=== PATIENT | female | born 1945 | race Caucasian/White ===

== ENCOUNTER → 2018-03-14 | Outpatient (CLI) | payer OTHER ==
[~2018-03-14] MED LIST: ACETAMINOPHEN; ALPR.25 PO; ALPR.5 PO; ASPI81CH PO; ASPI81EC PO; BACL10 PO; BUTALBITAL; Butalbital-Asa1 EAC1 PO; CAFFEINE; CALCA500CH PO; CALCIT950 PO; CHOL10002 PO; CIPR500 PO; CIPRO500 MG PO; CYAN500 PO; CYCL10 PO; Calcium Citrat250 MG PO; D3-20002000 UNIT PO; Dyazide 37.5-21 EACH PO; ENAL20 PO; FAMO20 PO; FISH OIL EC 1,1 EAC2 PO; FISH1000 PO; FLAX PO; FLUT110OIA INH; FOLI400 PO; HCTZ; HYDACE5 PO; HYDHOMSY; HYDR1TAB94 PO; HYDRA25 PO; HYDROCODONE-HOMA5 ML PO; IBUP800 PO; LORA.5 PO; LOSA25 PO; LOSA50 PO; MELO7.5 PO; METO100ER PO; METO50ER PO; METOPROLOL; MULVITB; Metoprolol Tar100 MG PO; NAPR500 PO; NYST100P TOP; OMEP20ER PO; Omeprazole20 M1; Omeprazole20 M1 PO; Phentermine HCl30 MG; TOCO400 PO; TRIHYD253B PO; VITAMIN B122500 MC1 PO; Vitamin E100 UNIT PO; ZOLP5 PO; [UNRECOGNIZED DRUG - OTHER]
[2018-03-14 16:50] LABS: BASOPHILS ABSOLUTE AUTO 0.05 K/mm3 (0.00-0.23); BASOPHILS PERCENT AUTO 1 % (0-2); EOSINOPHILS ABSOLUTE AUTO 0.18 K/mm3 (0.00-0.68); EOSINOPHILS PERCENT AUTO 3 % (0-6); Hematocrit 40.1 % (33.0-51.0); Hemoglobin 13.5 g/dL (11.5-16.0); IMMATURE GRAN ABSOLUTE AUTO 0.02 K/mm3 (0.00-0.10); IMMATURE GRAN PERCENT AUTO 0 % (0-1); LYMPHOCYTES ABSOLUTE AUTO 2.39 K/mm3 (0.84-5.20); LYMPHOCYTES PERCENT AUTO 39 % (21-46); MONOCYTES ABSOLUTE AUTO 0.62 K/mm3 (0.16-1.47); MONOCYTES PERCENT AUTO 10 % (4-13); Mean Corpuscular HGB 30.1 pg (26.0-34.0); Mean Corpuscular HGB Conc 33.7 g/dL (31.5-36.5); Mean Corpuscular Volume 89 fL (80-100); Mean Platelet Volume 10.1 fL (9.1-12.4); NEUTROPHILS ABSOLUTE AUTO 2.89 K/mm3 (1.96-9.15); NEUTROPHILS PERCENT AUTO 47 % (41-73); Platelet Count 306 K/mm3 (150-400); RDW Coefficient Variation 13.2 % (11.7-14.2); RDW Standard Deviation 43.1 fL (35.1-46.3); Red Blood Cell Count 4.49 M/mm3 (3.80-5.20); White Blood Cell Count 6.15 K/mm3 (4.00-11.30)
[2018-03-14 17:04] LABS: Alanine Aminotransfer (ALT/SGP 33 U/L (12-78); Albumin, Blood 3.5 g/dL (3.4-5.0); Albumin/Globulin Ratio 0.9 (0.8-1.8); Alk Phos 86 U/L (40-126); Anion Gap 11 mmol/L (6-16); Aspartate Aminotrans (AST/SGOT 19 U/L (12-37); Bilirubin, Total 0.3 mg/dL (0.1-1.0); Blood Urea Nitrogen 23 mg/dL (8-24); Bun/Creatinine Ratio 21.5 (12.0-20.0); CO2, Blood 27 mmol/L (21-32); Calcium, Blood 8.8 mg/dL (8.5-10.1); Chloride, Blood 101 mmol/L (98-108); Creatinine, Blood 1.07 mg/dL (0.40-1.00); Globulin, Blood 4.1 g/dL (2.2-4.0); Glomerular Filtration Rate 50 (60-); Glucose, Blood 111 mg/dL (70-99); Potassium, Blood 3.1 mmol/L (3.5-5.5); Sodium, Blood 139 mmol/L (136-145); Total Protein, Blood 7.6 g/dL (6.4-8.2)
[2018-03-14 17:05] LABS: Troponin I <0.017 ng/mL (0.000-0.040)
== END | disposition home or self-care (01) ==
LOC: LAB EV 16:46 → LAB SHORT 16:46
PROVIDERS: Physician Assistant
DX: R07.9 Chest pain, unspecified (principal)
CPT/HCPCS: 80053; 84484; 85025; 85379

== ENCOUNTER 2018-09-15 10:56 | Day surgery (SDC) | payer OTHER ==
[~2018-09-15] VITALS: Ht 154.9 cm; Wt 97.8 kg
[~2018-09-15 10:56] MED LIST changes: +Alph-E-Mixed400 UNIT; -CYAN500 PO; +Furosemide20 MG PO; +LO-DOSE ASPIRIN81 MG PO; -MULVITB; +NIFE30ER PO; +POTCHL20ER PO; +Vitamin B-121000 MCG; -[UNRECOGNIZED DRUG - OTHER]
--- NOTE | 2018-09-15 11:43 | NUR ---
09/15/18 1143 Malena Edouard WHEN PLACING EKG PADS ON PT., OBSERVED UNDER BILAT BREASTS PINK SKIN RASH.
== END 2018-09-15 12:25 | disposition home or self-care (01) ==
LOC: ORSCSDS 10:56
PROVIDERS: Surgery
PROC: 0DBK8ZX Excision of Ascending Colon, Via Natural or Artificial Opening Endoscopic, Diagnostic (ICD-10-PCS; principal; 2018-09-15 11:00)
DX: Z12.11 Encounter for screening for malignant neoplasm of colon (principal); Z86.010 Personal history of colon polyps; D12.2 Benign neoplasm of ascending colon; I10 Essential (primary) hypertension; G47.33 Obstructive sleep apnea (adult) (pediatric); K21.9 Gastro-esophageal reflux disease without esophagitis; E88.81 Metabolic syndrome and other insulin resistance; E66.01 Morbid (severe) obesity due to excess calories; Z68.41 Body mass index [BMI] 40.0-44.9, adult; Z79.899 Other long term (current) drug therapy
CPT/HCPCS: 88305; J2704; J7120

== ENCOUNTER → 2019-02-09 | Outpatient (CLI) | payer OTHER | END | disposition home or self-care (01) | LOC: LAB SHORT 17:59 → LAB EV 17:59 | DX: R30.0 Dysuria (principal); R30.9 Painful micturition, unspecified | CPT/HCPCS: 87086 ==

== ENCOUNTER → 2019-08-23 | Outpatient (CLI) | payer OTHER ==
[~2019-08-23] MED LIST changes: -Alph-E-Mixed400 UNIT; +Alph-E-Mixed400 UNIT PO; -Omeprazole20 M1
== END | disposition home or self-care (01) ==
LOC: LAB EV 14:50 → LAB SHORT 14:50
DX: L02.91 Cutaneous abscess, unspecified (principal)
CPT/HCPCS: 87070; 87075; 87205

== ENCOUNTER → 2019-12-28 | Outpatient (CLI) | payer OTHER ==
[~2019-12-28] MED LIST changes: +ACET500 PO; +ASPIR 8181 M1 PO; -LO-DOSE ASPIRIN81 MG PO; +ROXICODONE5 MG PO
== END ==
LOC: LAB SHORT 17:40 → LAB 17:40
DX: Z48.817 Encounter for surgical aftercare following surgery on the skin and subcutaneous tissue (principal); L08.9 Local infection of the skin and subcutaneous tissue, unspecified
CPT/HCPCS: 87070; 87077; 87186; 87205

== ENCOUNTER → 2020-03-19 | Outpatient (CLI) | payer OTHER ==
[~2020-03-19] MED LIST changes: +BUTALBITAL-ASA1 EACH PO; +FISH OIL 1,2001 EAC1 PO; +HYDCHL12.5 PO; +METF500C PO; +TRAM50 PO
[2020-03-21 14:32] LABS: CORONAVIRUS (COVID19) CSH-NRL Negative (Negative)
== END | disposition home or self-care (01) ==
LOC: LAB SHORT 13:24 → LAB 13:24
PROVIDERS: Internal Medicine
DX: Z20.822 Contact with and (suspected) exposure to COVID-19 (principal)
CPT/HCPCS: U0003

== ENCOUNTER → 2020-05-14 | Outpatient (CLI) | payer OTHER, SELFPAY | LOC: LAB SHORT 18:30 → LAB 18:30 | DX: L08.9 Local infection of the skin and subcutaneous tissue, unspecified (principal); L81.4 Other melanin hyperpigmentation; L82.1 Other seborrheic keratosis; D22.5 Melanocytic nevi of trunk; D22.71 Melanocytic nevi of right lower limb, including hip; D22.72 Melanocytic nevi of left lower limb, including hip; Z71.89 Other specified counseling | CPT/HCPCS: 87070; 87147; 87184; 87205 ==

== ENCOUNTER 2020-08-21 08:38 | Day surgery (SDC) | payer OTHER, SELFPAY ==
[~2020-08-21 08:38] MED LIST changes: -BUTALBITAL-ASA1 EACH PO; -FISH OIL 1,2001 EAC1 PO; -HYDCHL12.5 PO; -METF500C PO; -TRAM50 PO
[2020-09-16] MEDS ORDERED: BUTALBITAL-ASA1 EACH PO (12:52)
[2020-09-16] MEDS ORDERED: FISH OIL 1,2001 EAC1 PO (12:52)
[2020-09-16] MEDS ORDERED: HYDCHL12.5 PO (12:52)
[2020-09-16] MEDS ORDERED: TRAM50 PO (12:53)
[2020-09-16] MEDS ORDERED: METF500C PO (12:53)
== END 2020-08-21 22:52 | disposition home or self-care (01) ==
LOC: MOI MAM 08:38
DX: D05.11 Intraductal carcinoma in situ of right breast (principal)
CPT/HCPCS: 19081; 88305; 88341; 88342; 88360; A4648

== ENCOUNTER 2020-09-25 12:21 | Day surgery (SDC) | payer OTHER ==
[~2020-09-25] VITALS: Ht 157.5 cm; Wt 102.9 kg
[~2020-09-25 12:21] MED LIST changes: +BUTALBITAL-ASA1 EACH PO; +FISH OIL 1,2001 EAC1 PO; +HYDCHL12.5 PO; +METF500C PO; +TRAM50 PO
[2020-09-25] MEDS ORDERED: Phentermine HCl30 MG (13:07)
--- NOTE | 2020-09-25 17:23 | NUR ---
09/25/20 1723 Marita Levy PT IS IN THE RECLINER AT THIS TIME. VSS. PT IS TOLERATED PO FLUIDS WELL AND CONTINUES TO DENY NAUSEA. PT COMPLAINED OF PAIN 7/10 IN THE RIGHT BREAST. RN TREATED WITH IV AND ORAL PAIN MEDICATION PER DR'S ORDERS. PT'S FAMILY NOTIFIED OF PROGRESS. WARM BLANKETS PROVIDED AND CALL LIGHT IN REACH.
== END 2020-09-25 17:39 | disposition home or self-care (01) ==
LOC: ORSCSDS 12:21
PROVIDERS: Surgery
PROC: 0HBT0ZZ Excision of Right Breast, Open Approach (ICD-10-PCS; principal; 2020-09-25 13:00)
DX: C50.311 Malignant neoplasm of lower-inner quadrant of right female breast (principal); I10 Essential (primary) hypertension; E78.5 Hyperlipidemia, unspecified; E11.9 Type 2 diabetes mellitus without complications
CPT/HCPCS: 19281; 38792; 82947; 88307; 88342; A4648; A9270; A9520; J0690; J2405; J2765; J3010; J7120; Q9968

== ENCOUNTER → 2022-03-26 | Outpatient (CLI) | payer OTHER | END | disposition home or self-care (01) | LOC: LAB SHORT 16:38 | DX: N39.0 Urinary tract infection, site not specified (principal) | CPT/HCPCS: 87086 ==

== ENCOUNTER → 2023-01-13 | Outpatient (CLI) | payer OTHER ==
[2023-01-13 13:26] LABS: Anion Gap 9 mmol/L (6-16); Blood Urea Nitrogen 33 mg/dL (8-24); Bun/Creatinine Ratio 32.4 (12.0-20.0); CO2, Blood 23 mmol/L (21-32); Chloride, Blood 106 mmol/L (98-108); Creatinine, Blood 1.02 mg/dL (0.40-1.00); Glomerular Filtration Rate 57 (60-); Glucose, Blood 134 mg/dL (70-99); Phosphorus, Blood 4.6 mg/dL (2.5-4.9); Potassium, Blood 3.9 mmol/L (3.5-5.5); Sodium, Blood 138 mmol/L (136-145)
[2023-01-13 13:27] LABS: BASOPHILS ABSOLUTE AUTO 0.06 K/mm3 (0.00-0.23); BASOPHILS PERCENT AUTO 1 % (0-2); EOSINOPHILS ABSOLUTE AUTO 0.35 K/mm3 (0.00-0.68); EOSINOPHILS PERCENT AUTO 5 % (0-6); Hematocrit 40.7 % (33.0-51.0); Hemoglobin 13.5 g/dL (11.5-16.0); IMMATURE GRAN ABSOLUTE AUTO 0.02 K/mm3 (0.00-0.10); IMMATURE GRAN PERCENT AUTO 0 % (0-1); LYMPHOCYTES ABSOLUTE AUTO 2.77 K/mm3 (0.84-5.20); LYMPHOCYTES PERCENT AUTO 35 % (21-46); MONOCYTES ABSOLUTE AUTO 0.74 K/mm3 (0.16-1.47); MONOCYTES PERCENT AUTO 10 % (4-13); Mean Corpuscular HGB 29.5 pg (26.0-34.0); Mean Corpuscular HGB Conc 33.2 g/dL (31.5-36.5); Mean Corpuscular Volume 89 fL (80-100); Mean Platelet Volume 10.2 fL (9.1-12.4); NEUTROPHILS ABSOLUTE AUTO 3.88 K/mm3 (1.96-9.15); NEUTROPHILS PERCENT AUTO 50 % (41-73); Platelet Count 311 K/mm3 (150-400); RDW Coefficient Variation 13.6 % (11.7-14.2); Red Blood Cell Count 4.57 M/mm3 (3.80-5.20); White Blood Cell Count 7.82 K/mm3 (4.00-11.30)
== END | disposition home or self-care (01) ==
LOC: LAB SHORT 13:03 → LAB 13:03
PROVIDERS: Family Medicine
DX: K92.1 Melena (principal)
CPT/HCPCS: 80069; 85025

== ENCOUNTER 2023-03-20 19:23 | Emergency (ER) | payer OTHER ==
[~2023-03-20] VITALS: Ht 154.9 cm; Wt 98.4 kg
[2023-03-20 19:42] LABS: BASOPHILS ABSOLUTE AUTO 0.08 K/mm3 (0.00-0.23); BASOPHILS PERCENT AUTO 1 % (0-2); EOSINOPHILS ABSOLUTE AUTO 0.43 K/mm3 (0.00-0.68); EOSINOPHILS PERCENT AUTO 5 % (0-6); Hematocrit 38.5 % (33.0-51.0); Hemoglobin 12.4 g/dL (11.5-16.0); IMMATURE GRAN ABSOLUTE AUTO 0.03 K/mm3 (0.00-0.10); IMMATURE GRAN PERCENT AUTO 0 % (0-1); LYMPHOCYTES ABSOLUTE AUTO 3.51 K/mm3 (0.84-5.20); LYMPHOCYTES PERCENT AUTO 40 % (21-46); MONOCYTES ABSOLUTE AUTO 0.91 K/mm3 (0.16-1.47); MONOCYTES PERCENT AUTO 10 % (4-13); Mean Corpuscular HGB 29.2 pg (26.0-34.0); Mean Corpuscular HGB Conc 32.2 g/dL (31.5-36.5); Mean Corpuscular Volume 91 fL (80-100); Mean Platelet Volume 9.7 fL (9.1-12.4); NEUTROPHILS ABSOLUTE AUTO 3.83 K/mm3 (1.96-9.15); NEUTROPHILS PERCENT AUTO 44 % (41-73); Platelet Count 295 K/mm3 (150-400); RDW Coefficient Variation 12.9 % (11.7-14.2); RDW Standard Deviation 42.4 fL (35.1-46.3); Red Blood Cell Count 4.25 M/mm3 (3.80-5.20); White Blood Cell Count 8.79 K/mm3 (4.00-11.30)
[2023-03-20 20:05] LABS: Albumin, Blood 3.7 g/dL (3.4-5.0); Albumin/Globulin Ratio 1.1 (0.8-1.8); Bilirubin, Total 0.2 mg/dL (0.1-1.0); Bun/Creatinine Ratio 32.4 (12.0-20.0); Calcium, Blood 9.2 mg/dL (8.5-10.1); Creatinine, Blood 0.68 mg/dL (0.40-1.00); Globulin, Blood 3.5 g/dL (2.2-4.0); Potassium, Blood 4.3 mmol/L (3.5-5.5); Total Protein, Blood 7.2 g/dL (6.4-8.2)
[2023-03-20 22:23] LABS: Source, Urine Clean Catch
[2023-03-20 22:27] LABS: Bilirubin, Urine Neg (Neg); Blood, Urine Neg (Neg); Glucose Qualitative, Urine Neg (Neg); Ketones, Urine Neg (Neg); Leukocyte Esterase, Urine 3+ (Neg); Nitrite, Urine Neg (Neg); Protein, Urine Neg (Neg); Urobilinogen, Urine NORM (Normal)
[2023-03-20 23:13] LABS: Appearance, Urine Clear (Clear); Color, Urine Yellow (P-Yellow)
[2023-03-20 23:14] LABS: Bacteria Rare /hpf; Red Blood Cells, Urine Not Seen /hpf (0-2); Squamous Epithelial Cells Not Seen /hpf (Few)
[2023-03-20 23:32] VITALS: BP 141/63
== END 2023-03-20 23:32 | disposition home or self-care (01) ==
LOC: ER 19:23
PROVIDERS: Emergency Medicine
DX: R07.89 Other chest pain (principal); Z88.8 Allergy status to other drugs, medicaments and biological substances; Z79.82 Long term (current) use of aspirin; I10 Essential (primary) hypertension; Z79.899 Other long term (current) drug therapy
CPT/HCPCS: 71045; 80053; 81001; 84484; 85025; 87086; 93005; 93010; 99285-25; A9270

== ENCOUNTER 2024-06-23 06:10 | Day surgery (SDC) | payer OTHER ==
[2024-06-23] VITALS (15 sets, daily range): BP systolic 115–164; BP diastolic 63–77
[2024-06-23] MEDS ORDERED: Benzocaine Oral Spray 0.5ML UD ONE (06:49)
[2024-06-23] MEDS ORDERED: Lactated Ringer's 1,000 ML IV ONE (06:55)
--- NOTE | 2024-06-23 07:30 | NUR ---
ASSUMED CARE FROM ANESTHESIA. PT AWAKE AND VERBALIZING WELL.
--- NOTE | 2024-06-23 07:59 | NUR ---
PT VERBALIZED UNDERSTADING OF WRITTEN AND VERBAL D/C INST. PT AMB IN RM /S DIFFICULTY. PT WILL BE TAKEN OUT OF THE [facility] VIA W/C. IV REMOVED.
[2024-06-23] MEDS ORDERED: Lidocaine HCl 2% 20 MG/ML 5ML SYR IV ONE (12:31)
[2024-06-23] MEDS ORDERED: Propofol 10mg/ml 20 ml Vial (Procedural) IV ONE (12:31)
== END 2024-06-23 23:00 | disposition home or self-care (01) ==
LOC: MHTC 06:10
DX: I34.0 Nonrheumatic mitral (valve) insufficiency (principal); R06.09 Other forms of dyspnea; I10 Essential (primary) hypertension; E78.5 Hyperlipidemia, unspecified; E11.9 Type 2 diabetes mellitus without complications; E66.9 Obesity, unspecified; K21.9 Gastro-esophageal reflux disease without esophagitis
CPT/HCPCS: 93312; 93325; A9270; J2003; J2704; J7120

== ENCOUNTER 2024-07-04 08:48 | Day surgery (SDC) | payer OTHER ==
[~2024-07-04] VITALS: Ht 154.9 cm; Wt 98.0 kg
[~2024-07-04 08:48] MED LIST changes: -D3-20002000 UNIT PO; +SERTRALINE HCL50 MG PO; +TRAZ50 PO; +VITAMIN D310 MC5 PO
[2024-07-04] MEDS ORDERED: ALPR.25 PO (09:16)
[2024-07-04] MEDS ORDERED: ANASTROZOLE1 M7 PO (09:18)
[2024-07-04] MEDS ORDERED: GABA100 PO (09:18)
[2024-07-04 09:19] VITALS: BP 163/87
[2024-07-04] MEDS ORDERED: Atarax10 MG PO (09:19)
[2024-07-04] MEDS ORDERED: LOSA50 PO (09:19)
[2024-07-04] MEDS ORDERED: NITR.4SL SL (09:20)
[2024-07-04] MEDS ORDERED: PRAV20 PO (09:21)
[2024-07-04] MEDS ORDERED: NS 0 ML IV ONE ×2 (10:22→10:23)
[2024-07-04] MEDS ORDERED: Verapamil HCL 2.5 MG/ML 2ML Injection ONE (10:22)
[2024-07-04] MEDS ORDERED: Heparin Sodium 1000 Units/ML 10ML MDV ONE (10:22)
[2024-07-04] MEDS ORDERED: Nitroglycerin 2 MG/20 ML BTL ONE (10:23)
--- NOTE | 2024-07-04 11:43 | NUR ---
PT RESCHEDULED FOR TOMORROW. 20 IV DISCONTINUED FROM LEFT AC WITH INTACT CANNULA. PT ESCORTED OUT VIA WHEELCHAIR ESCORT.
[2024-07-05] MEDS ORDERED: FentaNYL Citrate 50 MCG/ML 2 ML Injection ONE (13:31)
[2024-07-05] MEDS ORDERED: Midazolam HCl 1MG / ML 2ML Vial ONE (13:31)
== END 2024-07-04 23:00 | disposition home or self-care (01) ==
LOC: MHTC 08:48
DX: I34.0 Nonrheumatic mitral (valve) insufficiency (principal); Z53.29 Procedure and treatment not carried out because of patient's decision for other reasons
CPT/HCPCS: J1644; J2250; J3010; J7030; J7050

== ENCOUNTER 2024-07-05 13:15 | Day surgery (SDC) | payer OTHER ==
[2024-07-05] VITALS (9 sets, daily range): BP systolic 119–167; BP diastolic 76–147
[~2024-07-05] VITALS: Ht 154.9 cm; Wt 98.0 kg
[~2024-07-05 13:15] MED LIST changes: +ANASTROZOLE1 M7 PO; +Atarax10 MG PO; +GABA100 PO; +NITR.4SL SL; +PRAV20 PO
[2024-07-05] MEDS ORDERED: Aspirin 81 MG Chew ONE (13:47)
[2024-07-05] MEDS ORDERED: Midazolam HCl 1MG / ML 2ML Vial ONE (14:45)
[2024-07-05] MEDS ORDERED: FentaNYL Citrate 50 MCG/ML 2 ML Injection ONE (14:45)
[2024-07-05] MEDS ORDERED: NS 250 ML IV ONE (14:48)
[2024-07-05] MEDS ORDERED: Heparin Sodium 1000 Units/ML 10ML MDV ONE (14:48)
[2024-07-05] MEDS ORDERED: NS 1,000 ML IV ONE (14:48)
[2024-07-05] MEDS ORDERED: Verapamil HCL 2.5 MG/ML 2ML Injection ONE (14:48)
[2024-07-05] MEDS ORDERED: Nitroglycerin 2 MG/20 ML BTL ONE (14:49)
--- NOTE | 2024-07-05 15:24 | NUR ---
pt to recovery from lab. radial site soft and non-tender per pt. no bleeing/hematoma noted. pt given food per request.
--- NOTE | 2024-07-05 15:59 | NUR ---
radial site soft and non-tender per pt. no bleeding noted.
--- NOTE | 2024-07-05 16:12 | NUR ---
radial site soft and non-tender per pt. no bleeding/hematoma noted. 2cc removed from tr band.
--- NOTE | 2024-07-05 16:33 | NUR ---
tr band fully deflated. no bleeding/hematoma noted. radial site soft and non-tender per pt.
--- NOTE | 2024-07-05 17:23 | NUR ---
pt given dc instructions and verbalized understadning. iv out. pt changed. radial site soft and non-tender per pt. no bleeding/hematoma noted. cloth dot, arm board, sling applied. pt taken to [facility] via [facility]. daughter to take pt home.
== END 2024-07-05 23:00 | disposition home or self-care (01) ==
LOC: MHTC 13:15
DX: I34.0 Nonrheumatic mitral (valve) insufficiency (principal); I25.118 Atherosclerotic heart disease of native coronary artery with other forms of angina pectoris; E66.01 Morbid (severe) obesity due to excess calories; E11.9 Type 2 diabetes mellitus without complications; I10 Essential (primary) hypertension; E78.5 Hyperlipidemia, unspecified; M81.0 Age-related osteoporosis without current pathological fracture; I11.0 Hypertensive heart disease with heart failure; I50.30 Unspecified diastolic (congestive) heart failure; Z88.8 Allergy status to other drugs, medicaments and biological substances; Z79.82 Long term (current) use of aspirin; Z79.899 Other long term (current) drug therapy; Z79.84 Long term (current) use of oral hypoglycemic drugs
CPT/HCPCS: 76937; 93458; 99152; A9270; C1769; C1887; C1894; J1644; J2250; J3010; J7030; J7050; Q9967

== ENCOUNTER 2024-10-23 12:36 | Observation (INO) | payer OTHER ==
[~2024-10-23] VITALS: Ht 154.9 cm; Wt 97.5 kg
[2024-10-23] MEDS ORDERED: ISOSORBIDE MONO30 MG PO (13:35)
[2024-10-23 13:47] LABS: BASOPHILS ABSOLUTE AUTO 0.06 K/mm3 (0.00-0.23); BASOPHILS PERCENT AUTO 1 % (0-2); EOSINOPHILS ABSOLUTE AUTO 0.25 K/mm3 (0.00-0.68); EOSINOPHILS PERCENT AUTO 3 % (0-6); Hematocrit 39.3 % (33.0-51.0); Hemoglobin 12.9 g/dL (11.5-16.0); IMMATURE GRAN ABSOLUTE AUTO 0.03 K/mm3 (0.00-0.10); IMMATURE GRAN PERCENT AUTO 0 % (0-1); LYMPHOCYTES ABSOLUTE AUTO 1.73 K/mm3 (0.84-5.20); LYMPHOCYTES PERCENT AUTO 22 % (21-46); MONOCYTES ABSOLUTE AUTO 0.54 K/mm3 (0.16-1.47); MONOCYTES PERCENT AUTO 7 % (4-13); Mean Corpuscular HGB Conc 32.8 g/dL (31.5-36.5); Mean Corpuscular Volume 88 fL (80-100); NEUTROPHILS ABSOLUTE AUTO 5.15 K/mm3 (1.96-9.15); NEUTROPHILS PERCENT AUTO 66 % (41-73); NRBC ABSOLUTE 0.00 K/mm3 (0.00-0.02); NRBC Auto 0.0 /100 WBC (0.0-0.2); Platelet Count 286 K/mm3 (150-400); RDW Coefficient Variation 13.2 % (11.7-14.2); RDW Standard Deviation 42.9 fL (35.1-46.3)
[2024-10-23 14:07] LABS: Alanine Aminotransfer (ALT/SGP 27.0 U/L (12-78); Albumin, Blood 3.7 g/dL (3.4-5.0); Albumin/Globulin Ratio 1.0 (0.8-1.8); Anion Gap 8.0 mmol/L (3-11); Aspartate Aminotrans (AST/SGOT 22.0 U/L (12-37); Bilirubin, Total 0.6 mg/dL (0.1-1.0); Blood Urea Nitrogen 12.0 mg/dL (8-24); CO2, Blood 27.0 mmol/L (21-32); Calcium, Blood 9.4 mg/dL (8.5-10.1); Chloride, Blood 106.0 mmol/L (98-108); Creatinine, Blood 0.58 mg/dL (0.40-1.00); Globulin, Blood 3.8 g/dL (2.2-4.0); Glucose, Blood 118.0 mg/dL (70-99); Potassium, Blood 3.7 mmol/L (3.5-5.5); Sodium, Blood 137.0 mmol/L (136-145); Total Protein, Blood 7.5 g/dL (6.4-8.2)
[2024-10-23 16:24] LABS: Influenza A, PCR NEGATIVE (NEGATIVE); Influenza B, PCR NEGATIVE (NEGATIVE); Resp Syncytial Virus, PCR NEGATIVE (NEGATIVE); SARS-Cov-2 (COVID-19) PCR, MMC NEGATIVE (NEGATIVE)
[2024-10-23] MEDS ORDERED: Ondansetron HCl 2 MG / ML 2ML Vial IV PRN (17:50)
[2024-10-23] MEDS ORDERED: Insulin Human Lispro 100 Units/ML 3ML Syringe SC SCH (21:00)
[2024-10-23 22:04] VITALS: BP 161/77
[2024-10-24] VITALS (7 sets, daily range): BP systolic 136–164; BP diastolic 67–88
[2024-10-24 05:07] LABS: Magnesium, Blood 1.4 mg/dL (1.6-2.4)
[2024-10-24 05:08] LABS: Anion Gap 9.0 mmol/L (3-11); Blood Urea Nitrogen 14.0 mg/dL (8-24); CO2, Blood 30.0 mmol/L (21-32); Calcium, Blood 8.7 mg/dL (8.5-10.1); Chloride, Blood 101.0 mmol/L (98-108); Creatinine, Blood 0.83 mg/dL (0.40-1.00); Glucose, Blood 94.0 mg/dL (70-99); Potassium, Blood 3.6 mmol/L (3.5-5.5); Sodium, Blood 136.0 mmol/L (136-145)
--- NOTE | 2024-10-24 07:25 | NUR ---
SHIFT SUMMARY; PATIENT SLEPT IN LONG INTERVALS, HAD 1 MORE LIQUID BM. UP TO BSC BREATHING ALITTLE EASIER BY MORNING.
[2024-10-24] MEDS ORDERED: Enoxaparin 40 MG/0.4 ML SYR SC SCH (09:00)
--- NOTE | 2024-10-24 16:48 | NUR ---
SHIFT SUMMARY PT AOX4, INDEPENDENT IN THE ROOM. GOOD URINE OUTPUT THIS SHIFT. NO ACUTE COMPLAINTS. CALLS AND MAKES HER NEEDS KNOWN. FAMILY AT THE BS TODAY. REPOSITIONS SELF IN BED. NO EVENTS PER TELE. CALL LIGHT WITHIN REACH, BED LOCKED AND IN THE LOWEST POSITION. WILL REPORT TO ONCOMING NURSE.
[2024-10-25 03:12] VITALS: BP 129/59
--- NOTE | 2024-10-25 03:14 | NUR ---
TELE REPORTS 13 BEAT RUN OF [place], PT ASLEEP, AWOKE AND DENIES ANY CHEST DISCOMFORT. VS WNL.
--- NOTE | 2024-10-25 04:35 | NUR ---
PT A&O X4, VS WNL, TELE NSR IN 70'S, CBG 171 AT HS. PT INDEPENDENT WITH MOBILITY. USES CALL SYSTEM APPROPRIATELY. REMAINS ON DIURETIC'S. WILL D/C HOME WHEN STABLE.
[2024-10-25 05:25] LABS: Albumin, Blood 3.7 g/dL (3.4-5.0); Anion Gap 10 mmol/L (3-11); Blood Urea Nitrogen 18 mg/dL (8-24); CO2, Blood 30 mmol/L (21-32); Calcium, Blood 8.5 mg/dL (8.5-10.1); Chloride, Blood 99 mmol/L (98-108); Creatinine, Blood 0.84 mg/dL (0.40-1.00); Glucose, Blood 103 mg/dL (70-99); Phosphorus, Blood 4.5 mg/dL (2.5-4.9); Potassium, Blood 3.6 mmol/L (3.5-5.5); Sodium, Blood 135 mmol/L (136-145)
[2024-10-25 07:49] VITALS: BP 148/78
--- NOTE | 2024-10-25 11:42 | NUR ---
DISCHARGE NOTE: WENT OVER DISCHARGE WITH THE PATIENT. IV AND TELE REMOVED. ADDITIONAL 40 MG OF PO LASIX GIVEN TO PATIENT PRIOR TO D/C PER DR. MEJIA. PATIENT WHEELED DOWN TO [facility] BY THIS RN. NO SIGNS OR SYMPTOMS OF DISTRESS WITH DISCHARGE.
== END 2024-10-25 11:29 | disposition home or self-care (01) ==
LOC: ER 12:36 → MEDS 12:37
PROVIDERS: Internal Medicine; Nurse Practitioner Acute Care; Student in an Organized Health Care Education/Training Program; ADMIT Internal Medicine
DX: I11.0 Hypertensive heart disease with heart failure (principal); I50.33 Acute on chronic diastolic (congestive) heart failure; I34.0 Nonrheumatic mitral (valve) insufficiency; I25.10 Atherosclerotic heart disease of native coronary artery without angina pectoris; J90 Pleural effusion, not elsewhere classified; E78.5 Hyperlipidemia, unspecified; E11.9 Type 2 diabetes mellitus without complications; K21.9 Gastro-esophageal reflux disease without esophagitis; C50.919 Malignant neoplasm of unspecified site of unspecified female breast; G47.00 Insomnia, unspecified; F32.A Depression, unspecified; E66.01 Morbid (severe) obesity due to excess calories; Z79.1 Long term (current) use of non-steroidal anti-inflammatories (NSAID); Z79.82 Long term (current) use of aspirin; Z79.811 Long term (current) use of aromatase inhibitors; Z79.899 Other long term (current) drug therapy; Z88.1 Allergy status to other antibiotic agents; Z88.8 Allergy status to other drugs, medicaments and biological substances
CPT/HCPCS: 36415; 71046; 71260; 80048; 80053; 80069; 82947; 83735; 83880; 84484; 85025; 87637; 93005; 93010; 93306; 96372; 96374-59; 96375-59; 96376; 97116; 97162; 97530; 99285-25; A9270; G0378; J1650; J1938; J2405; Q9967

== ENCOUNTER 2025-03-04 10:11 | Emergency (ER) | payer OTHER ==
[~2025-03-04] VITALS: Ht 154.9 cm; Wt 91.2 kg
[~2025-03-04 10:11] MED LIST changes: +ISOSORBIDE MONO30 MG PO
[2025-03-04 10:36] VITALS: BP 115/478
[2025-03-04 13:34] LABS: BASOPHILS ABSOLUTE AUTO 0.04 K/mm3 (0.00-0.23); BASOPHILS PERCENT AUTO 0 % (0-2); EOSINOPHILS ABSOLUTE AUTO 0.06 K/mm3 (0.00-0.68); EOSINOPHILS PERCENT AUTO 1 % (0-6); Hematocrit 41.1 % (33.0-51.0); Hemoglobin 13.6 g/dL (11.5-16.0); IMMATURE GRAN ABSOLUTE AUTO 0.04 K/mm3 (0.00-0.10); IMMATURE GRAN PERCENT AUTO 0 % (0-1); LYMPHOCYTES ABSOLUTE AUTO 1.58 K/mm3 (0.84-5.20); LYMPHOCYTES PERCENT AUTO 17 % (21-46); MONOCYTES ABSOLUTE AUTO 0.35 K/mm3 (0.16-1.47); MONOCYTES PERCENT AUTO 4 % (4-13); Mean Corpuscular HGB Conc 33.1 g/dL (31.5-36.5); Mean Corpuscular Volume 88 fL (80-100); NEUTROPHILS ABSOLUTE AUTO 7.47 K/mm3 (1.96-9.15); NEUTROPHILS PERCENT AUTO 78 % (41-73); NRBC ABSOLUTE 0.00 K/mm3 (0.00-0.02); NRBC Auto 0.0 /100 WBC (0.0-0.2); Platelet Count 282 K/mm3 (150-400); RDW Coefficient Variation 12.8 % (11.7-14.2); RDW Standard Deviation 40.6 fL (35.1-46.3)
[2025-03-04 13:56] LABS: Alanine Aminotransfer (ALT/SGP 29.0 U/L (12-78); Albumin, Blood 4.1 g/dL (3.4-5.0); Albumin/Globulin Ratio 1.1 (0.8-1.8); Anion Gap 12.0 mmol/L (3-11); Aspartate Aminotrans (AST/SGOT 21.0 U/L (12-37); Bilirubin, Total 0.7 mg/dL (0.1-1.0); Blood Urea Nitrogen 16.0 mg/dL (8-24); CO2, Blood 24.0 mmol/L (21-32); Calcium, Blood 9.6 mg/dL (8.5-10.1); Chloride, Blood 102.0 mmol/L (98-108); Creatinine, Blood 0.79 mg/dL (0.40-1.00); Globulin, Blood 3.8 g/dL (2.2-4.0); Glucose, Blood 147.0 mg/dL (70-99); Potassium, Blood 4.1 mmol/L (3.5-5.5); Sodium, Blood 134.0 mmol/L (136-145); Total Protein, Blood 7.9 g/dL (6.4-8.2)
[2025-03-04] MEDS ORDERED: Milk 150ML/Molasses 150ML (300ML Total) PR ONE (17:25)
[2025-03-04] MEDS ORDERED: MIRALAX17 GM PO (18:17)
== END 2025-03-04 18:36 | disposition home or self-care (01) ==
LOC: ER 10:11
PROVIDERS: Emergency Medicine
DX: K59.00 Constipation, unspecified (principal); K56.49 Other impaction of intestine; I10 Essential (primary) hypertension; Z79.82 Long term (current) use of aspirin; Z88.8 Allergy status to other drugs, medicaments and biological substances; Z79.899 Other long term (current) drug therapy
CPT/HCPCS: 74018; 80053; 85025; 99283-25; A6590